=== PATIENT | female | born 1980 | race Caucasian/White ===

== ENCOUNTER 2023-02-23 01:23 | Emergency (ER) | payer MEDICAID ==
[~2023-02-23] VITALS: Ht 157.5 cm; Wt 72.6 kg
[~2023-02-23 01:23] MED LIST: AMLO5TAB4 PO; BENA-6 PO; CEPH-548 PO; EMPA25TA PO; ERGO1250 PO
[2023-02-23 02:06] VITALS: BP_SYST 190
[2023-02-23] MEDS ORDERED: SEMA0.25 SQ ×2 (02:11→02:32)
[2023-02-23] MEDS ORDERED: BENAZEPRIL HCL 20 MG TABLET (LOTENSIN) PO ONE (02:30)
[2023-02-23] MEDS ORDERED: amLODIPine BESYLATE 5 MG TABLET PO ONE (02:30)
[2023-02-23] MEDS ORDERED: BENA-6 PO (02:32)
[2023-02-23] MEDS ORDERED: AMLO5TAB4 PO (02:32)
[2023-02-23] MEDS ORDERED: EMPA25TA PO (02:32)
[2023-02-23] MEDS ORDERED: ERGO1250 PO (02:32)
[2023-02-23 03:03] VITALS: BP_SYST 164
== END 2023-02-23 03:03 | disposition home or self-care (01) ==
LOC: SED 01:23
DX: I16.0 Hypertensive urgency (principal); R42 Dizziness and giddiness; E11.9 Type 2 diabetes mellitus without complications; I10 Essential (primary) hypertension; Z79.899 Other long term (current) drug therapy
CPT/HCPCS: 99283

== ENCOUNTER 2023-03-17 18:33 | Emergency (ER) | payer MEDICAID ==
[~2023-03-17] VITALS: Ht 157.5 cm; Wt 68.9 kg
[~2023-03-17 18:33] MED LIST changes: -CEPH-548 PO; +SEMA0.25 SQ
[2023-03-17 18:56] VITALS: BP_SYST 170
== END 2023-03-17 23:00 | disposition left against medical advice (07) ==
LOC: SED 18:33
DX: R42 Dizziness and giddiness (principal); E11.9 Type 2 diabetes mellitus without complications; I10 Essential (primary) hypertension; Z53.21 Procedure and treatment not carried out due to patient leaving prior to being seen by health care provider
CPT/HCPCS: 99281

== ENCOUNTER 2023-03-17 23:39 | Emergency (ER) | payer MEDICAID ==
[~2023-03-17] VITALS: Ht 157.5 cm; Wt 68.9 kg
[2023-03-18 00:02] VITALS: BP_SYST 170
--- NOTE | 2023-03-18 00:08 | NUR ---
Patient to ER bed 07 to gown for evaluation. Side rails up. Report given to ERIC ANDERSON.
--- NOTE | 2023-03-18 00:19 | NUR ---
Called Poison Control at [phone] and spoke with Vi. Per recommendations: per Vi pt passed the peak and no blood test needed.If VSS pt can be discharge home. Dr. Tidwell notified. Will continue to monitor patient.
--- NOTE | 2023-03-18 00:20 | NUR ---
Dr. Tidwell at bedside examining the patient.
[2023-03-18 00:34] VITALS: BP_SYST 132
--- NOTE | 2023-03-18 00:36 | NUR ---
Patient given written and verbal discharge instructions and verbalizes understanding. ER MD discussed with patient the results and treatment provided. Patient in stable condition. ID arm band removed. NO Rx given. Patient educated on pain management and to follow up with PMD. Pain Scale 0/10. Opportunity for questions provided and answered. Medication side effect fact sheet provided.
== END 2023-03-18 00:35 | disposition home or self-care (01) ==
LOC: SED 23:39
DX: I10 Essential (primary) hypertension (principal); T46.5X1A Poisoning by other antihypertensive drugs, accidental (unintentional), initial encounter; E11.9 Type 2 diabetes mellitus without complications; Z79.899 Other long term (current) drug therapy; Y92.89 Other specified places as the place of occurrence of the external cause
CPT/HCPCS: 99281

== ENCOUNTER → 2023-10-25 | Emergency (ER) | payer MEDICAID ==
[~2023-10-25] VITALS: Ht 157.5 cm; Wt 71.2 kg
[~2023-10-25] MED LIST changes: +ASPI-1155 PO; +LIP40 PO; +SEMA0.258 SQ
[2023-10-25 17:05] VITALS: BP_SYST 152; PULSE 102; RESP 18; TEMP 99.1; O2SAT 97
== END | disposition left against medical advice (07) ==
LOC: SED 17:02
DX: M79.10 Myalgia, unspecified site (principal); Z53.21 Procedure and treatment not carried out due to patient leaving prior to being seen by health care provider
CPT/HCPCS: 99281

== ENCOUNTER 2024-04-10 13:20 | Emergency (ER) | payer MEDICAID ==
[~2024-04-10] VITALS: Ht 157.5 cm; Wt 77.1 kg
[2024-04-10 13:44] VITALS: BP_SYST 125; PULSE 100; RESP 18; TEMP 98.3; O2SAT 98
[2024-04-10 15:09] LABS: HEMATOCRIT 37.8 % (36-48); HEMOGLOBIN 13.3 g/dL (12.0-16.0); MEAN CORPUSCULAR HEMOGLOBIN 30 pg (27-31)
[2024-04-10 15:16] LABS: BASOPHILS # (AUTO) 0.1 K/uL (0.0-0.2); BASOPHILS % (AUTO) 0.7 % (0.0-2.0); EOSINOPHILS % (AUTO) 0.2 % (0.0-4.0); LYMPHOCYTES % (AUTO) 12.8 % (20.5-51.5); MEAN CORPUSCULAR HGB CONC 35 % (32-36); MEAN CORPUSCULAR VOLUME 85 fL (79.0-98.0); MONOCYTES # (AUTO) 0.9 K/uL (0.0-1.0); MONOCYTES % (AUTO) 5.4 % (1.7-9.3); NEUTROPHILS # (AUTO) 12.8 K/uL (1.8-7.7); NEUTROPHILS % (AUTO) 80.9 % (40.0-70.0); PLATELET COUNT (AUTO) 233 K/uL (130-430); RED BLOOD CELL COUNT(AUTO) 4.47 MIL/uL (4.2-6.2); WHITE BLOOD COUNT (AUTO) 15.9 K/uL (4.8-10.8)
[2024-04-10 15:26] LABS: SERUM HCG (QUALITATIVE) NEGATIVE (NEGATIVE)
[2024-04-10 15:40] LABS: ALBUMIN 3.4 g/dL (3.4-4.8); BILIRUBIN,DIRECT 0.1 mg/dL (0.0-0.3); CALCIUM 8.9 mg/dL (8.4-11.0); CREATININE 0.65 mg/dL (0.55-1.30); POTASSIUM 3.6 mmol/L (3.5-5.1); TOTAL BILIRUBIN 0.7 mg/dL (0.0-1.0); TOTAL PROTEIN, SERUM 8.2 g/dL (6.4-8.3)
[2024-04-10] MEDS: PANTOPRAZOLE SODIUM 40 MG/VIAL (PROTONIX) IVP ONE (16:00)
[2024-04-10] MEDS: NACL 0.9% 1,000 ML IV ONE (16:00)
[2024-04-10] MEDS: NORMAL SALINE 5 ML DISP.SYRIN IVF SCH (16:00)
[2024-04-10] MEDS: ONDANSETRON HCL 4 MG/2 ML VIAL IVP ONE (16:00)
[2024-04-10] MEDS: DICYCLOMINE HCL 10 MG/5 ML SOLUTION PO ONE (18:04)
[2024-04-10] MEDS: MAG-AL HYDROX/SIMETH 30 ML UDC PO ONE (18:04)
[2024-04-10] MEDS: KETOROLAC TROMETHAMINE 30 MG VIAL IVP ONE (18:26)
[2024-04-10 18:34] LABS: BILIRUBIN,URINE NEGATIVE (NEGATIVE); BLOOD, URINE 2+ (NEGATIVE); COLOR,URINE YELLOW (YELLOW); GLUCOSE,URINE 3+ (NEGATIVE); KETONES,URINE 2+ (NEGATIVE); LEUKOCYTE ESTERASE ,URINE NEGATIVE (NEGATIVE); NITRITE, URINE NEGATIVE (NEGATIVE); PROTEIN URINE 1+ (NEGATIVE); UROBILINOGEN,URINE 0.2 (0.2-1.0)
[2024-04-10 18:42] LABS: CLARITY/URINE SLIGHTLY HAZY (CLEAR)
[2024-04-10 18:59] LABS: BACTERIA,URINE FEW /HPF (None Seen); WBC,URINE 0-3 /HPF (0-3)
[2024-04-10 19:00] LABS: MUCUS,URINE None Seen /LPF (None Seen)
[2024-04-10 21:58] VITALS: BP_SYST 117; PULSE 80; RESP 20; TEMP 98.6; O2SAT 97
[2024-04-10] MEDS: KETOROLAC TROMETHAMINE 30 MG VIAL IM ONE (22:25)
[2024-04-10] MEDS ORDERED: OMEP40CA20 PO (22:33)
== END 2024-04-10 22:40 | disposition home or self-care (01) ==
LOC: SED 13:20
DX: R10.13 Epigastric pain (principal); K21.9 Gastro-esophageal reflux disease without esophagitis; K27.9 Peptic ulcer, site unspecified, unspecified as acute or chronic, without hemorrhage or perforation; F17.200 Nicotine dependence, unspecified, uncomplicated; E11.9 Type 2 diabetes mellitus without complications; I10 Essential (primary) hypertension; Z79.899 Other long term (current) drug therapy; Z79.2 Long term (current) use of antibiotics; Z79.82 Long term (current) use of aspirin
CPT/HCPCS: 99285; 74176; 96374; 96375; 96361; 80076; 80048; 81001; 84703; 83690; 85025; 36415; 96372; J1885; J2405; C9113; J7030; 81000; 81015